=== PATIENT | male | born 1940 | race Caucasian/White ===

== ENCOUNTER 2018-10-20 17:07 | Emergency (ER) | payer MEDICARE, OTHER ==
[~2018-10-20] VITALS: Ht 185.4 cm; Wt 115.9 kg
[~2018-10-20 17:07] MED LIST: APIX5TAB3 PO; ATOR40TA PO; BUPR300T7 PO; GABA400C PO; LEVO112T61 PO; LOP25T PO; NORCO10T PO; TERA5CAP4 PO
[2018-10-20] MEDS ORDERED: normal saline 1000ml 1,000 ML IV ONE (17:45)
[2018-10-20 18:07] LABS: BASOPHILS # (AUTO) 0.1 X10'3 (0-0.2); EOSINOPHILS # (AUTO) 0.3 X10'3 (0-0.9); EOSINOPHILS % (AUTO) 6.5 % (0-6); HEMATOCRIT 33.9 % (42.0-52.0); HEMOGLOBIN 11.3 g/dl (14.0-17.9); LYMPHOCYTES # (AUTO) 0.9 X10'3 (1.1-4.8); LYMPHOCYTES % (AUTO) 17.4 % (21-51); MEAN CORPUSCULAR HEMOGLOBIN 29.8 PG (27.0-31.0); MEAN CORPUSCULAR HGB CONC 33.3 g/dL (33.0-36.5); MEAN CORPUSCULAR VOLUME 89.4 FL (78-98); MEAN PLATELET VOLUME 7.4 FL (7.4-10.4); MONOCYTES # (AUTO) 0.9 X10'3 (0-0.9); MONOCYTES % (AUTO) 18.8 % (2-12); NEUTROPHILS # (AUTO) 2.8 X10'3 (1.8-7.7); NEUTROPHILS % (AUTO) 56.3 % (42-75); PLATELET COUNT 373 X10'3 (140-440); RED CELL DISTRIBUTION WIDTH 15.1 % (11.5-14.5)
[2018-10-20 18:24] LABS: ALANINE AMINOTRANSFERASE 21 U/L (12-78); ALBUMIN 2.8 G/DL (3.4-5.0); ALBUMIN/GLOBULIN RATIO 0.7 (1.1-1.5); ALKALINE PHOSPHATASE 119 IU/L (46-116); ANION GAP 5 (8-16); ASPARTATE AMINO TRANSFERASE 16 U/L (10-37); BILIRUBIN,TOTAL 0.7 MG/DL (0.1-1.0); BLOOD UREA NITROGEN 13 MG/DL (7-18); CALCIUM 8.8 MG/DL (8.5-10.1); CHLORIDE 102 MMOL/L (99-107); GLUCOSE 100 MG/DL (70-104); POTASSIUM 3.8 MMOL/L (3.5-5.1); SODIUM 136 MMOL/L (135-145); TOTAL CARBON DIOXIDE 29.2 MMOL/L (24-32); TOTAL PROTEIN 6.7 G/DL (6.4-8.2); eGFR 73 ML/MIN
[2018-10-20 18:27] LABS: MAGNESIUM 1.8 MG/DL (1.5-2.4)
[2018-10-20 18:32] LABS: ANISOCYTOSIS 1+; PLATELET ESTIMATE NORMAL; TOTAL CELLS COUNTED 100
[2018-10-20] MEDS ORDERED: iohexol 350MG/ML 100ml bottle IV ONE (18:39)
[2018-10-20 19:55] VITALS: BP 127/91
== END 2018-10-20 19:56 | disposition home or self-care (01) ==
LOC: ER 17:07
DX: R53.1 Weakness (principal); R53.81 Other malaise; R06.02 Shortness of breath; R42 Dizziness and giddiness; R60.0 Localized edema; I48.91 Unspecified atrial fibrillation; E78.00 Pure hypercholesterolemia, unspecified; E07.9 Disorder of thyroid, unspecified; Z88.2 Allergy status to sulfonamides; Z79.899 Other long term (current) drug therapy
CPT/HCPCS: 36415; 71045; 71275; 80053; 83735; 83880; 84443; 84484; 85025; 85610; 93005; 93971; 96360; 99284; J7030; Q9967

== ENCOUNTER 2021-04-14 19:18 | Emergency (ER) | payer MEDICARE, OTHER ==
[~2021-04-14] VITALS: Ht 185.4 cm; Wt 109.0 kg
[2021-04-14] MEDS ORDERED: CYCL-1 PO (21:44)
[2021-04-14 21:55] VITALS: BP 119/69
== END 2021-04-14 22:00 | disposition home or self-care (01) ==
LOC: ER 19:19
DX: M54.42 Lumbago with sciatica, left side (principal); I48.91 Unspecified atrial fibrillation; E78.00 Pure hypercholesterolemia, unspecified; Z88.2 Allergy status to sulfonamides; Z79.899 Other long term (current) drug therapy; V29.9XXA Motorcycle rider (driver) (passenger) injured in unspecified traffic accident, initial encounter; Y93.89 Activity, other specified; Y92.89 Other specified places as the place of occurrence of the external cause; Y99.8 Other external cause status
CPT/HCPCS: 71046; 72100; 72128; 72131; 93005; 99285

== ENCOUNTER 2022-06-27 07:29 | Inpatient (IN) | payer MEDICARE, OTHER ==
[2022-06-21 14:59] LABS: BASOPHILS % (AUTO) 0.6 % (0-1); EOSINOPHILS # (AUTO) 0.1 X10'3 (0-0.9); EOSINOPHILS % (AUTO) 3.1 % (0-6); LYMPHOCYTES # (AUTO) 1.1 X10'3 (1.1-4.8); LYMPHOCYTES % (AUTO) 23.3 % (21-51); MEAN CORPUSCULAR HEMOGLOBIN 28.8 PG (27.0-31.0); MEAN CORPUSCULAR HGB CONC 33.1 g/dL (33.0-36.5); MEAN PLATELET VOLUME 8.3 FL (7.4-10.4); MONOCYTES # (AUTO) 0.5 X10'3 (0-0.9); MONOCYTES % (AUTO) 10.7 % (2-12); NEUTROPHILS # (AUTO) 2.9 X10'3 (1.8-7.7); NEUTROPHILS % (AUTO) 62.3 % (42-75); PRE OP HEMATOCRIT 36.9 % (42.0-52.0); PRE OP HEMOGLOBIN 12.2 g/dL (14.0-17.9); PRE OP PLATELET COUNT 168 X10'3 (140-440); RED BLOOD COUNT 4.24 X10'6 (4.70-6.10)
[2022-06-21 15:28] LABS: ALBUMIN 3.6 G/DL (3.4-5.0); ALBUMIN/GLOBULIN RATIO 0.9 (1.1-1.5); ALKALINE PHOSPHATASE 109 IU/L (46-116); BLOOD UREA NITROGEN 16 MG/DL (7-18); BUN/CREATININE RATIO 16.3 (10.0-20.0); CALCIUM 9.4 MG/DL (8.5-10.1); CHLORIDE 106 MMOL/L (99-107); CREATININE 0.98 MG/DL (0.60-1.10); PRE OP ALT 21 U/L (30-65); PRE OP ANION GAP 3 (8-16); PRE OP AST 22 U/L (10-37); PRE OP BILIRUB, TOTAL 0.7 MG/DL (0.0-1.0); PRE OP GLUCOSE 91 MG/DL (70-104); PRE OP POTASSIUM 4.2 MMOL/L (3.4-5.1); PRE OP SODIUM 141 MMOL/L (135-145); TOTAL CARBON DIOXIDE 31.8 MMOL/L (24-32); TOTAL PROTEIN 7.5 G/DL (6.4-8.2); eGFR 74 ML/MIN
[~2022-06-27] VITALS: Ht 185.4 cm; Wt 115.7 kg
[2022-06-27] VITALS (27 sets, daily range): BP systolic 84–119; BP diastolic 43–68
[~2022-06-27 07:29] MED LIST changes: -BUPR300T7 PO; +HYDROmorphone 1 mg/ml syringe IV PRN; +HYDROmorphone inj. 0.5 MG/0.5 ML DISP.SYRIN IV PRN; -LOP25T PO; +acetaminophen 325mg tablet PO ONE; +acetaminophen 325mg tablet PO PRN; +bisacodyl 10mg suppository rectal RC PRN; +cefazolin 2gm/D5W 100mL 100 ML IV ONE; +celeCOXIB 100mg capsule PO ONE; +diphenhydrAMINE 25mg capsule PO PRN; +famotidine 20mg tablet PO ONE; +gabapentin 300mg capsule PO ONE; +magnesium hydroxide 30ml (MOM) UD suspension PO PRN; +metoclopramide 5 mg/ml inj IV ONE; +naloxone 0.4 mg/ml inj IV PRN; +ondansetron/PF 4mg/2ml inj IV PRN; +oxyCODONE SR 10mg (sust. release) tab -2 tabs (20mg) PO ONE; +ringers solution, lacted 1,000 ML IV SCH; +tranexamic acid inj. 1,000 MG in normal saline IV soln 100ML IV ONE; +vancomycin 1,500 MG in NS 300ml IV soln IV ONE
[2022-06-27] MEDS ORDERED: VANCOMYCIN 1,500MG inj. 1,500 MG in normal saline 500ml IV soln 300 ML IV ONE ×2 (08:00→20:00)
--- NOTE | 2022-06-27 09:26 | NUR ---
PT USED SOAP PER TOTAL JOINT PROTOCOL X 5. STRONG PALPABLE PULSE TO LEFT FOOT, MARKED W/ SKIN MARKER. GOOD CSM TO LEFT FOOT. PT STATES HE READ THROUGH HIS TOTAL JOINT BOOKLET. NO OINTMENT WAS ORDERED PER MD FOR PRE OP DECOLONIZATION PROCESS.
[2022-06-27] MEDS ORDERED: epiNEPHrine 1 mg/ml inj ONE (10:38)
[2022-06-27] MEDS ORDERED: ROPIVAcaine 0.5% (5mg/ml) 30ml vial ONE ×2 (10:38→14:32)
[2022-06-27] MEDS ORDERED: cloNIDine hcl/PF 100mcg/ml inj ONE (10:38)
[2022-06-27] MEDS ORDERED: vancomycin 1,000mg inj ONE (10:39)
[2022-06-27] MEDS ORDERED: ringers solution, lacted 1,000 ML IV SCH (10:50)
[2022-06-27] MEDS ORDERED: ROPIVAcaine 0.2% (10 MG/5 ML) BOLUS INJECTION ADDCANAL PRN (10:50)
[2022-06-27] MEDS ORDERED: morphine 4 MG/ML inj SYRINge IV PRN (10:50)
[2022-06-27] MEDS ORDERED: morphine 2 MG/ML inj. syringe IV PRN (10:50)
[2022-06-27] MEDS ORDERED: meperidine/PF 25mg/ml syringe IV PRN ×3 (10:50)
[2022-06-27] MEDS ORDERED: ondansetron/PF 4mg/2ml inj IV PRN (10:50)
[2022-06-27] MEDS ORDERED: proCHLORperazine 10 MG/2 ml inj IV PRN (10:50)
[2022-06-27] MEDS ORDERED: fentaNYL/PF 50MCG/1 ML 2ML syringe ONE (11:08)
[2022-06-27] MEDS ORDERED: MIDAZolam 1 MG/ML 5ML VIAL ONE (11:08)
[2022-06-27] MEDS ORDERED: ePHEDrine 50MG/ML INJ. ONE (13:12)
[2022-06-27] MEDS ORDERED: tranexamic acid inj. 1,150 MG in normal saline 100ml IV soln 88.5 ML IV ONE ×2 (15:00→18:20)
--- NOTE | 2022-06-27 15:16 | NUR ---
Received from OR via BED, accompanied by Anesthesiologist DR SAMANO and report given by Anesthesiologist AND MOTEL KEEPER. PT DROWSY, DENIES PAIN, LEFT KNEE W/TOMMY DRAIN/DRSG W/GREEN LIGHT ILLUMINATION, LEG WRAP, POWDER PACK, PILLOW PLACED UNDER LEFT ANKLE. Addendum: 06/27/22 at 1759 by Arlene Geiger RN Amended: Links added.
[2022-06-27] MEDS: ROPIVAcaine 0.2%/PF PUMP/bolus 545 ML ADDCANAL SCH (17:02)
--- NOTE | 2022-06-27 17:18 | NUR ---
Patient in room [facility]. I have received report from KATHARINE CUEVAS FROM [facility]ERY and had the opportunity to ask questions and assume patient care.
--- NOTE | 2022-06-27 17:46 | NUR ---
Report called to receiving nurse. Transferred via BED, W/2 BAGS OF Belongings, C-PAP TO ROOM 359A. BLL, CALL LIGHT GIVEN, SIDE RAILS UP X 2. RECEIVING RN AT BEDSIDE TO RECEIVE PT. Special Issues communicated to receiving nurse. YES. Addendum: 06/27/22 at 1802 by Arlene Geiger RN Amended: Links added.
--- NOTE | 2022-06-27 18:32 | NUR ---
Problems reprioritized. Patient report given, questions answered & plan of care reviewed with KATHARINE JULIO.
[2022-06-27] MEDS: potassium cl 20mEq in 1/2 NS 1,000 ML IV SCH ×3 (18:56→21:57)
[2022-06-27] MEDS: HYDROcodone/acetaminophen 10/325mg tab PO PRN (20:40)
[2022-06-27] MEDS: ascorbic acid 500mg tablet PO SCH (20:40)
[2022-06-27] MEDS: sennosides 8.6mg tablet PO SCH (20:40)
[2022-06-27] MEDS: atorvastatin 20mg tablet PO SCH (20:40)
[2022-06-27] MEDS: terazosin 5mg capsule PO SCH (20:41)
[2022-06-27] MEDS: gabapentin 400mg capsule PO SCH (20:41)
[2022-06-28] VITALS (7 sets, daily range): BP systolic 102–122; BP diastolic 51–74
[2022-06-28] MEDS: HYDROcodone/acetaminophen 10/325mg tab PO PRN ×3 (00:47→21:25)
[2022-06-28] MEDS: potassium cl 20mEq in 1/2 NS 1,000 ML IV SCH ×3 (02:49→11:03)
[2022-06-28 07:12] LABS: BASOPHILS % (AUTO) 0 % (0-1); EOSINOPHILS # (AUTO) 0.1 X10'3 (0-0.9); EOSINOPHILS % (AUTO) 1.6 % (0-6); HEMATOCRIT 27.2 % (42.0-52.0); LYMPHOCYTES # (AUTO) 0.2 X10'3 (1.1-4.8); LYMPHOCYTES % (AUTO) 4.8 % (21-51); MEAN CORPUSCULAR HEMOGLOBIN 28.9 PG (27.0-31.0); MEAN CORPUSCULAR HGB CONC 33.1 g/dL (33.0-36.5); MEAN CORPUSCULAR VOLUME 87.4 FL (78-98); MEAN PLATELET VOLUME 8.3 FL (7.4-10.4); MONOCYTES # (AUTO) 0.4 X10'3 (0-0.9); MONOCYTES % (AUTO) 7.9 % (2-12); NEUTROPHILS # (AUTO) 4.2 X10'3 (1.8-7.7); NEUTROPHILS % (AUTO) 85.7 % (42-75); PLATELET COUNT 123 X10'3 (140-440); RED BLOOD COUNT 3.11 X10'6 (4.70-6.10); RED CELL DISTRIBUTION WIDTH 15.7 % (11.5-14.5); WHITE BLOOD COUNT 4.9 X10'3 (4.5-11.0)
[2022-06-28 07:13] LABS: ANION GAP 4 (8-16); CHLORIDE 107 MMOL/L (99-107); POTASSIUM 4.3 MMOL/L (3.5-5.1); SODIUM 140 MMOL/L (135-145)
[2022-06-28] MEDS: multivitamins, therapeutics tablet PO SCH (07:44)
[2022-06-28] MEDS: ascorbic acid 500mg tablet PO SCH ×2 (07:44→21:20)
[2022-06-28] MEDS: levoTHYROXINE 112mcg tablet PO SCH (07:44)
[2022-06-28] MEDS: gabapentin 400mg capsule PO SCH ×2 (07:44→21:25)
[2022-06-28] MEDS: apixaban 5mg tablet PO SCH ×2 (07:45→21:26)
--- NOTE | 2022-06-28 09:07 | NUR ---
8130: Dr Bowens changed the saturated dressing, stated to reinforce only with ABD. PT worked with pt, ODANN and Rachelle knee expressed blood through gauze and DU onto the floor. This RN reenforced gauze with ABD padsx4 and replaced DU bandage x2. RN to monitor. Addendum: 06/28/22 at 1526 by Brina Bradford RN Circled drainage on DU bandage. Will continue to monitor. Addendum: 06/28/22 at 1658 by Brina Bradford RN Pt ambulated length of miller and back with nursing. Tolerated well, dressing saturated. Replaced DU and reenforced with 2 ABD pads. s/sx of occlusion not present. RN to monitor.
--- NOTE | 2022-06-28 16:08 | NUR ---
Educated pt on importance of PO intake
[2022-06-28] MEDS: celeCOXIB 100mg capsule PO SCH (21:20)
[2022-06-28] MEDS: atorvastatin 20mg tablet PO SCH (21:21)
[2022-06-28] MEDS: terazosin 5mg capsule PO SCH (21:21)
[2022-06-28] MEDS: sennosides 8.6mg tablet PO SCH (21:21)
--- NOTE | 2022-06-28 22:39 | NUR ---
Pt. is awake alert oriented spouse at bedside Pt. is POD# 1 Left leg dressing dry and intact. with deny wrap skin is extra warm to touch. Pt. takes po fluids well ate most of pm meal. Able to use urinal voiding mod amt sapphire clear urine. Peripheral IV intact IV fluids infusing well. Pt. c/o pain in left leg medicated with Haslett tolerated well. Prefers to sleep on home CPAP machine.
[2022-06-29 02:00] VITALS: BP 117/57
[2022-06-29 06:00] VITALS: BP 98/55
[2022-06-29 06:27] LABS: BASOPHILS % (AUTO) 0.1 % (0-1); EOSINOPHILS # (AUTO) 0.2 X10'3 (0-0.9); EOSINOPHILS % (AUTO) 3.8 % (0-6); HEMATOCRIT 27.2 % (42.0-52.0); HEMOGLOBIN 9.2 g/dl (14.0-17.9); LYMPHOCYTES # (AUTO) 0.7 X10'3 (1.1-4.8); MEAN CORPUSCULAR HEMOGLOBIN 29.3 PG (27.0-31.0); MEAN CORPUSCULAR HGB CONC 33.7 g/dL (33.0-36.5); MEAN PLATELET VOLUME 8.5 FL (7.4-10.4); MONOCYTES # (AUTO) 0.7 X10'3 (0-0.9); MONOCYTES % (AUTO) 14.5 % (2-12); NEUTROPHILS # (AUTO) 3.3 X10'3 (1.8-7.7); NEUTROPHILS % (AUTO) 67.6 % (42-75); PLATELET COUNT 130 X10'3 (140-440); RED BLOOD COUNT 3.13 X10'6 (4.70-6.10); RED CELL DISTRIBUTION WIDTH 16.1 % (11.5-14.5); WHITE BLOOD COUNT 4.9 X10'3 (4.5-11.0)
--- NOTE | 2022-06-29 06:59 | NUR ---
Patient in room [facility]. I have received report from KATHARINE Najera and had the opportunity to ask questions and assume patient care.
[2022-06-29] MEDS: celeCOXIB 100mg capsule PO SCH (08:16)
[2022-06-29] MEDS: levoTHYROXINE 112mcg tablet PO SCH (08:16)
[2022-06-29] MEDS: ascorbic acid 500mg tablet PO SCH (08:17)
[2022-06-29] MEDS: HYDROcodone/acetaminophen 10/325mg tab PO PRN (08:17)
[2022-06-29] MEDS: multivitamins, therapeutics tablet PO SCH (08:18)
[2022-06-29] MEDS: apixaban 5mg tablet PO SCH (08:18)
[2022-06-29] MEDS: gabapentin 400mg capsule PO SCH (08:19)
[2022-06-29 10:00] VITALS: BP 116/65
[2022-06-29] MEDS: ROPIVAcaine 0.2%/PF PUMP/bolus 545 ML ADDCANAL SCH (16:13)
--- NOTE | 2022-06-29 16:22 | NUR ---
Patient stable and appropriate for discharge. Instructions gone over with patient. Patient verbalizes understanding. ONQ ball replaced. Patient states he has walker at home and has "people" who will be coming in and out to help him. IV removed canula intact. Patient taken to lobby by [employer]ER, accompanied home by friend.
== END 2022-06-29 16:30 | disposition home or self-care (01) | DRG 468 ==
LOC: PAS 07:29 → SUR 3N 17:50
PROVIDERS: ADMIT Orthopaedic Surgery; ATTEND Orthopaedic Surgery
PROC: 0SRD0J9 Replacement of Left Knee Joint with Synthetic Substitute, Cemented, Open Approach (ICD-10-PCS; 2022-06-27)
PROC: 3E0T3BZ Introduction of Anesthetic Agent into Peripheral Nerves and Plexi, Percutaneous Approach (ICD-10-PCS; 2022-06-27)
PROC: 0SPD08Z Removal of Spacer from Left Knee Joint, Open Approach (ICD-10-PCS; principal; 2022-06-27 11:36)
PROC: 5A09357 Assistance with Respiratory Ventilation, Less than 24 Consecutive Hours, Continuous Positive Airway Pressure (ICD-10-PCS; 2022-06-28)
PROC: 5A09357 Assistance with Respiratory Ventilation, Less than 24 Consecutive Hours, Continuous Positive Airway Pressure (ICD-10-PCS; 2022-06-29)
DX: T84.54XA Infection and inflammatory reaction due to internal left knee prosthesis, initial encounter (principal); Y83.1 Surgical operation with implant of artificial internal device as the cause of abnormal reaction of the patient, or of later complication, without mention of misadventure at the time of the procedure; Y92.89 Other specified places as the place of occurrence of the external cause; Z79.82 Long term (current) use of aspirin; Z88.2 Allergy status to sulfonamides; Z79.899 Other long term (current) drug therapy
CPT/HCPCS: 36415; 73560; 80051; 80053; 82948; 84443; 85025; 86870; 86880; 86885; 86900; 86901; 86922; 87081; 97110; 97116; 97161; 97530; A4215; A4615; A6253; A6449; A7000; C1713; C1776; G0378; J0171; J0690; J0735; J1170; J2175; J2250; J2765; J2795; J3010; J3370; J3480; J3490; J7040; J7060; J7120

== ENCOUNTER 2022-09-06 09:06 | Outpatient (CLI) | payer MEDICARE, OTHER ==
[~2022-09-06 09:06] MED LIST changes: +CELE-85 PO; +DOCU-148 PO; +DULO30CA52 PO; -HYDROmorphone 1 mg/ml syringe IV PRN; -HYDROmorphone inj. 0.5 MG/0.5 ML DISP.SYRIN IV PRN; +ONDA8TAB13 PO; +POLY510P31 PO; +RUXO60CR TOP; +[UNRECOGNIZED DRUG - CODE] PO; -acetaminophen 325mg tablet PO ONE; -acetaminophen 325mg tablet PO PRN; -bisacodyl 10mg suppository rectal RC PRN; -cefazolin 2gm/D5W 100mL 100 ML IV ONE; -celeCOXIB 100mg capsule PO ONE; -diphenhydrAMINE 25mg capsule PO PRN; -famotidine 20mg tablet PO ONE; -gabapentin 300mg capsule PO ONE; -magnesium hydroxide 30ml (MOM) UD suspension PO PRN; -metoclopramide 5 mg/ml inj IV ONE; -naloxone 0.4 mg/ml inj IV PRN; -ondansetron/PF 4mg/2ml inj IV PRN; -oxyCODONE SR 10mg (sust. release) tab -2 tabs (20mg) PO ONE; -ringers solution, lacted 1,000 ML IV SCH; -tranexamic acid inj. 1,000 MG in normal saline IV soln 100ML IV ONE; -vancomycin 1,500 MG in NS 300ml IV soln IV ONE
== END 2022-09-06 23:59 | disposition home or self-care (01) ==
LOC: VAS 09:06
PROVIDERS: ATTEND Orthopaedic Surgery
DX: S81.802A Unspecified open wound, left lower leg, initial encounter (principal); T81.31XA Disruption of external operation (surgical) wound, not elsewhere classified, initial encounter; T84.59XA Infection and inflammatory reaction due to other internal joint prosthesis, initial encounter; M79.89 Other specified soft tissue disorders; Z96.652 Presence of left artificial knee joint; Y83.8 Other surgical procedures as the cause of abnormal reaction of the patient, or of later complication, without mention of misadventure at the time of the procedure; Y92.89 Other specified places as the place of occurrence of the external cause; X58.XXXA Exposure to other specified factors, initial encounter; Y93.89 Activity, other specified; Y99.8 Other external cause status
CPT/HCPCS: 93971

== ENCOUNTER 2025-01-22 14:06 | Emergency (ER) | payer MEDICARE, OTHER ==
[~2025-01-22] VITALS: Ht 185.4 cm; Wt 117.8 kg
[~2025-01-22 14:06] MED LIST changes: +CELE-127 PO; -CELE-85 PO; +ONDA-245 PO; -ONDA8TAB13 PO; +[UNRECOGNIZED DRUG - CODE] PO; -[UNRECOGNIZED DRUG - CODE] PO
--- NOTE | 2025-01-22 14:52 | RADIOLOGY REPORT ---
CLINICAL INDICATION: LEFT ANKLE PAIN TECHNIQUE: Left DI ANKLE, COMPLETE(3VW MIN) Comparison: None FINDINGS/IMPRESSION: : Diffuse soft-tissue swelling and edema. Linear lucency at the lateral malleolus is suspicious for a subtle avulsion fracture ; age indeterminate. Ankle mortise is intact.
[2025-01-22 14:54] VITALS: BP 96/67; PULSE 71; RESP 14; O2SAT 96
--- NOTE | 2025-01-22 15:15 | Physician Documentation ---
History of Present Illness ~ Chief Complaint: Ankle pain Stated Complaint: L ANKLE PAIN Time Seen by MD: 14:36 Primary Medical Doctor: BEBA TIDWELL PA HPI This is an 84-year-old male who presents with four days of left ankle pain and swelling after he rolled his ankle, patient reports that he has been able to walk on it with the assistance of a cane though it is quite painful. Patient reports no other acute symptoms or concerns. Tetanus witin 5 years: Yes Medication Reconciliation Allergies: Coded Allergies: Sulfa (Sulfonamide Antibiotics) (Verified Allergy, Mild, RASH, 01/22/25) Scheduled Apixaban (Eliquis), 5 MG PO BID, (Reported) Atorvastatin Calcium* (Lipitor*), 40 MG PO HS, (Reported) Calcium Carbonate (Antacid Extra Strength), 1 TAB PO BID, (Reported) Docusate Sodium (Colace), 1 CAP PO Q12H Duloxetine HCl (Duloxetine HCl), 1 CAP PO DAILY, (Reported) Gabapentin (Neurontin), 400 MG PO BID, (Reported) Levothyroxine Sodium* (Synthroid*), 112 MCG PO DAILY, (Reported) Polyethylene Glycol 3350 ([id number]), 17 GM PO DAILY, (Reported) Ruxolitinib Phosphate (Opzelura), 1 APPLIC TOP BID, (Reported) Terazosin Hcl (Terazosin Hcl), 5 MG PO QPM, (Reported) Scheduled PRN Celecoxib (Celecoxib), 1 TAB PO BID PRN for pain, (Reported) Hydrocodone Bit/Acetaminophen 10/325 MG* ([place] 10/325 MG*), 1 TAB PO TID PRN for severe pain (7-10), (Reported) Ondansetron 8mg ODT (Ondansetron Odt), 1 TAB PO TID PRN for nausea/vomiting, (Reported) Past Medical History Past Medical History: Atrial Fibrillation, High Cholesterol, Thyroid (unspecified), Arthritis Past Surgical History: no surgical history Alcohol Use: None Drug Use: none Lives with: Spouse Lives In: Home Occupation: employed Review of Systems ROS As stated above in the HPI, otherwise all systems are reviewed and negative. Physical Exam Vital Signs: Temperature: 97.4, Source: Oral, Heart Rate: 71, Respiratory Rate: 14, BP: 96/67, Pulse Oximetry: 96, Weight: 117.800 Oxygen Flow Rate: 0 Physical Exam VITALS: Reviewed and as above. GENERAL: Alert, nontoxic appearing, no apparent distress. RESPIRATORY: No increased work of breathing, no respiratory distress, speaking in full clear sentences CV: Brisk capillary refill to left foot, pedal pulse intact MUSCULOSKELETAL: Left ankle and foot swollen, no obvious deformity SKIN: Left ankle ecchymosis, warm to the touch, skin temperature equal bilaterally as compared to right ankle NEURO: Sense of touch in feet equal bilaterally Progress Results/Orders Results/Orders Orders - BRIANNE CELESTE Ankle, Complete(3vw Min) (01/22/25 14:41) Ortho Orders (01/22/25 ) Completed Orders - BRIANNE CELESTE Ankle, Complete(3vw Min) (01/22/25 14:41) Vital Signs 01/22/25 01/22/25 01/22/25 14:24 14:54 15:44 Temp 97.4 97.4 97.4 Pulse 76 71 Resp 18 14 B/P (MAP) 129/61 96/67 (77) Pulse Ox 98 96 O2 Flow Rate 0 0 EKG/XRAY/CT/US/VASC/MRI Bone/Soft Tissue X-Ray (Ext.) : Additional Comment Exam: ANKLE, COMPLETE(3VW MIN) CLINICAL INDICATION: LEFT ANKLE PAIN TECHNIQUE: Left DI ANKLE, COMPLETE(3VW MIN) Comparison: None FINDINGS/IMPRESSION: : Diffuse soft-tissue swelling and edema. Linear lucency at the lateral malleolus is suspicious for a subtle avulsion fracture ; age indeterminate. Ankle mortise is intact. Electronically Signed by:MC TIAN MD Date & Time: 01/22/251448 Dictated by: MC TIAN MD Dictation date and time: 01/22/251448 I have reviewed and agree with the radiology report. I have reviewed and interpreted the imaging as: No grossly displaced fracture or dislocation Medical Decision Making Additional information obtaine: N/A Findings This is a 84-year-old male presented with four days of right ankle pain and swelling, reassuring the foot was neurovascularly intact and patient was able to walk and bear weight however imaging did demonstrate evidence of an avulsion fracture of the left lateral malleolus which will require walking boot and follow up with orthopedist. Patient is otherwise well-appearing and pain managed with currently prescribed pain medications. Patient is appropriate for outpatient follow up, patient provided home care instructions, follow up inst ructions, and return to care precautions which he verbalized understanding of. General Diff Dx:Considerations: Include: Sprain Knee Diff Dx:Considerations: Unlikely: Abrasion, Arthritis, Contusion, DJD, Fracture-femur, Fracture-fibula, Fracture-patella, Fracture-tibia, Gout, Hematoma, Laceration, Meniscus injury, Neurovascular injury, Open fracture, Rheumatoid arthritis, Septic, Sprain, Sprain-MCL, Sprain-LCL, Sprain-ACL, Sprain-PCL, Other Ankle Diff Dx:Considerations: Include: Abrasion, DJD, Fracture-metatarsal, Fracture-fibula, Fracture-tarsal, Fracture-tibia, Gout, Hematoma, Laceration, Neurovascular injury Foot Diff Dx:Considerations: Include: Abrasion, Cellulitis Toe Diff Dx:Considerations: Unlikely: Abrasion, Cellulitis, Contusion, Dislocation, Felon, Fracture, Hematoma, Laceration, Neurovascular injury, Open fracture, Paronychia, Subungual hematoma, Other Departure Time of Disposition: 15:14 Disposition: 01 HOME / SELF CARE / HOMELESS Impression: Primary Impression: Avulsion fracture of lateral malleolus of left fibula Qualified Codes: S82.62XA - Displaced fracture of lateral malleolus of left fibula, initial encounter for closed fracture Condition: Improved Discharge Instructions: Ankle Fracture Additional Instructions: Please wear the walking boot, you may bear weight as long as it does not cause pain to your foot or ankle. Please follow up with the orthopedist at the number provided or your choice of orthopedist. Please use your previously prescribed medications for pain management. Please follow up with your primary care provider in the next few days. Please return to the emergency department for any new or worsening concerning symptoms. Referrals: NO PRIMARY CARE PROVIDER (PCP) DELLA MARIANO Jr., MD Education Educated: Patient Educated regarding: diagnosis, treatment, prognosis, need for follow up Signature Scribe Signature: No scribe Attestation: The note accurately reflects work and decisions made by me.MOJGAN Morales 01/22/25 19:39 Parts of this note were created using MModal voice recognition software program. While efforts were made to correct any mistakes made by this voice recognition software program, nonsensical phrases may remain in this note. In addition, there may be errors and syntax, grammar, content and spelling. BRIANNE CELESTE [facility] Jan 22, 2025 15:15
[2025-01-22 15:44] VITALS: TEMP 97.4
== END 2025-01-22 15:35 | disposition home or self-care (01) ==
LOC: ER 14:07
DX: S82.62XA Displaced fracture of lateral malleolus of left fibula, initial encounter for closed fracture (principal); I48.91 Unspecified atrial fibrillation; E78.00 Pure hypercholesterolemia, unspecified; M19.90 Unspecified osteoarthritis, unspecified site; Z88.2 Allergy status to sulfonamides; Z79.899 Other long term (current) drug therapy; X50.1XXA Overexertion from prolonged static or awkward postures, initial encounter; Y93.89 Activity, other specified; Y92.89 Other specified places as the place of occurrence of the external cause; Y99.8 Other external cause status
CPT/HCPCS: 73610; 99284; L4360